=== PATIENT | female | born 1960 | race Caucasian/White ===

== ENCOUNTER 2017-11-06 13:35 | Inpatient (IN) ==
[2017-11-06] MEDS ORDERED: Acetaminophen 325 MG TABLET PO PRN (13:55)
[2017-11-06] MEDS ORDERED: metroNIDAZOLE 500 MG TABLET PO SCH (15:00)
[2017-11-06] MEDS ORDERED: Furosemide 40 MG TABLET PO SCH (17:00)
--- NOTE | 2017-11-06 17:18 | Internal Med History&Physical ---
Date of Encounter: 11/06/17 Time of Encounter: 16:50 Assessment and Plan (1) COPD (chronic obstructive pulmonary disease) Current visit: No Status: Acute Continue Symbicort, albuterol, Incruse ellipta, and prednisone taper Qualifiers: COPD type: COPD with acute exacerbation Qualified Code(s): J44.1 - Chronic obstructive pulmonary disease with (acute) exacerbation (2) Diastolic heart failure Current visit: Yes Status: Chronic Continue Lasix and Lopressor Qualifiers: Heart failure chronicity: chronic Qualified Code(s): I50.32 - Chronic diastolic (congestive) heart failure Internal Medicine - H&P: HPI Chief complaint: COPD Admitted From: Hospital to Hospital Transfer Plans for Post Hospital Care: Home History of present illness: Ms. Hinds is a 56 year old female who was admitted to [facility] swing bed 2017 after a October 28 hospitalization at [facility] for exacerbation of COPD. She required BiPAP for acute respiratory failure. She gradually improved with treatment and was discharged to swing bed for ongoing therapy needs prior to discharge home. She does not have good recall of her recent [facility] stay and has difficulty answering some questions regarding past medical history. Her respiratory history is significant for having smoked since age 14 up to 2 packs per day. She has a diagnosis of COPD from pulmonary function test done in 2014. She wears oxygen 24/7 at home. Past Med Surg Social Fam HX - Past Medical History Medical history: CHF, COPD Psychiatric history: no psych history - Past Surgical History Surgical History: hysterectomy - Social History Smoking Status: Current every day smoker Smokeless Tobacco Status: No Alcohol use: none Drug use: none Internal Medicine - H&P: Meds Albuterol Sulfate [Ventolin Hfa] 2 puff IH Q6H PRN 10/28/17 [History] Budesonide/Formoterol 160/4.5 [Symbicort 160/4.5] 2 puff IH BIDR 10/29/17 [ History] Clopidogrel [Plavix] 75 mg PO DAILY 10/29/17 [History] Umeclidinium [place] [Incruse Ellipta] 1 puff IH DAILY 10/29/17 [History] Acetaminophen [Tylenol] 650 mg PO Q6HR PRN tablet 11/06/17 [Rx] Furosemide [Lasix] 40 mg PO BID tablet 11/06/17 [Rx] Metoprolol [Lopressor] 12.5 mg PO BID tablet 11/06/17 [Rx] Polyethylene Glycol 3350 [MiraLAX] 17 gm PO DAILY PRN powd.pack 11/06/17 [Rx] Sennosides/Docusate Sodium [Senna Plus] 1 each PO BID tablet 11/06/17 [Rx] metroNIDAZOLE [Flagyl] 500 mg PO TID #15 tablet 11/06/17 [Rx] predniSONE [PredniSONE] 40 mg PO DAILY #5 tablet 11/06/17 [Rx] 3 Allergy/AdvReac Type Severity Reaction Status Date / Time aspirin AdvReac Vomiting Verified 06/24/15 19:28 All Systems PM: A 10-system review of systems was performed and is negative for pertinent findings except as documented above in the HPI. Review of systems: Gen.: Her weight has increased from 43.59 kg on 06/27/2015 to 47.287 kg today.. Cardiovascular: She denies [place] hypertension heart failure angina DVT or pulmonary embolus. Echocardiogram at [facility] 11/01/2017 showed LVEF of 60-65% with mild diastolic dysfunction but no significant valvular abnormality. The E/ A ratio was 0.8. RVSP estimate not obtained due to poor TR jet. Respiratory: As per history of present illness GI: She denies disorders of her liver gallbladder or exocrine pancreas : She denies hematuria dysuria or kidney stones Neurologic: She denies large distribution strokes or seizures. Endocrine: She denies diabetes thyroid disease or hyperlipidemia Hematology/oncology: She had uterine cancer with a curative hysterectomy at age 27. She also had BSO. Psychiatric: She denies anxiety depression or other mental health issues Musk skeletal: She denies arthritis gout or osteoporosis other bone joint or muscle disorders. - Constitutional Vitals: Temp Pulse Resp BP Pulse Ox 98.6 F 109 20 92/56 93 11/06/17 13:57 11/06/17 15:10 11/06/17 13:57 11/06/17 13:57 11/06/17 15:10 Exam: Gen.: She is a well-developed lean female resting comfortably in bed and appears in no acute distress HEENT: Head is atraumatic and normocephalic. Eyes: EOMI. There is no scleral icterus. Mouth: Mucosa is moist. Neck: Supple and nontender. There is no thyromegaly or adenopathy noted. Heart: Regular without murmurs gallops or ectopics Lungs: No wheezes or crackles are heard. Abdomen: Soft and nontender. No masses or guarding are noted. Exam is limited because she is in a seated position. Extremities: She has 1-2+ edema of the dorsum of the feet and lower legs bilaterally. Dorsalis pedis and posterior tibial pulses are nonpalpable. Neurologic: Mental status: She is talkative and a fair to good historian. She has difficulty recalling some details of her history. Cranial nerves: Smile is symmetric. Forehead wrinkles bilaterally. Tongue protrudes midline. EOMI. Motor: There is no pronator drift. Cerebellar: Finger to nose is intact bilaterally. Skin: Warm and dry
[2017-11-06] MEDS: Sennosides/Docusate Sodium TABLET PO SCH (20:55)
[2017-11-06] MEDS: Budesonide/Formoterol 160/4.5 MDI IH SCH (21:39)
[2017-11-07 06:31] LABS: Basophils % 0.1 %; Eosinophils # 0.1 K/mcL (0.0-0.6); Hematocrit 36.7 % (35.3-44.9); Hemoglobin 11.3 g/dL (11.5-15.4); Immature Granulocytes % 0.9 % (0-4); Lymphocytes % 11.6 %; Mean Corpuscular HGB Conc 30.8 g/dL (31.6-35.5); Mean Corpuscular Volume 100.8 fL (83.0-100.0); Mean Platelet Volume 10.1 fL (9.4-12.4); Monocytes # 1.2 K/mcL (0.0-1.3); Monocytes % 13.6 %; Neutrophils # 6.5 K/mcL (1.6-8.9); Platelet Count 151 K/mcL (140-400); Red Blood Count 3.64 M/mcL (3.82-4.97); Red Cell Distribution Width 14.1 % (11.5-14.5); Segmented Neutrophils % 72.8 %
[2017-11-07 07:15] LABS: BUN/Creatinine Ratio 48 (6-26); Blood Urea Nitrogen 15 mg/dL (6-20); Calcium 8.5 mg/dL (8.6-10.3); Chloride 85 mEq/L (98-107); Glucose 150 mg/dL (70-105); Osmolality,Calculated 296 (280-300); Potassium 3.8 mEq/L (3.5-5.1); Sodium 141 mEq/L (136-145); eGFR For African Americans > 60 (> 60); eGFR For Non-African Americans > 60 (> 60)
[2017-11-07 07:17] LABS: Carbon Dioxide > 45 mEq/L (23-29)
[2017-11-07] MEDS: Bumetanide 1 MG TABLET PO SCH (07:37)
[2017-11-07] MEDS: Sennosides/Docusate Sodium TABLET PO SCH ×2 (07:38→21:05)
[2017-11-07] MEDS: predniSONE 20 MG TABLET PO SCH (07:38)
[2017-11-07] MEDS ORDERED: predniSONE 20 MG TABLET PO SCH (09:00)
[2017-11-07] MEDS: INCRUSE ELLIPTA IH SCH (09:56)
[2017-11-07 10:20] LABS: Folate 6.7 ng/mL (3.0-16.0)
[2017-11-07] MEDS: Budesonide/Formoterol 160/4.5 MDI IH SCH ×2 (10:28→20:24)
--- NOTE | 2017-11-07 10:56 | Internal Med Progress Note ---
Date of Encounter: 11/07/17 Time of Encounter: 10:45 - Assessment and plan (1) COPD (chronic obstructive pulmonary disease) Current Visit: No Status: Acute Assessment and plan: Continue Symbicort, albuterol, prednisone, and Incruse Qualifiers: COPD type: COPD with acute exacerbation Qualified Code(s): J44.1 - Chronic obstructive pulmonary disease with (acute) exacerbation (2) Diastolic heart failure Current Visit: Yes Status: Chronic Assessment and plan: November 07. BN peptide improved to 152. Continue Bumex and Lopressor. Qualifiers: Heart failure chronicity: chronic Qualified Code(s): I50.32 - Chronic diastolic (congestive) heart failure (3) Macrocytic anemia Current Visit: Yes Status: Acute Assessment and plan: November 07. B12 280, folate 6.7, and TSH 0.946. Will observe - Subjective Interval history: November 07. She has no new complaints. She inquired about her anticipated length of stay. She used BiPAP during the night but states the mask did not fit well. - Constitutional Vitals: Temp Pulse Resp BP Pulse Ox 98.3 F 95 18 94/59 96 11/07/17 06:55 11/07/17 06:55 11/07/17 06:55 11/07/17 06:55 11/06/17 21:49 Exam: She is sitting in bed resting comfortably and appears in no acute distress. Edema is unchanged. Her affect is bright and cheerful. I reviewed her medications and lab results. Internal Medicine: Result - Labs CBC & Chem 7: 11/07/17 05:45 11/07/17 05:45 Labs: Short CBC 11/07/17 Range/Units 05:45 WBC 8.9 (4.3-11.1) K/mcL Hgb 11.3 L (11.5-15.4) g/dL Hct 36.7 (35.3-44.9) % Plt Count 151 (140-400) K/mcL Neutrophils # 6.5 (1.6-8.9) K/mcL BMP 11/07/17 05:45 Sodium 141 Potassium 3.8 Chloride 85 L Carbon Dioxide > 45 H* BUN 15 Creatinine 0.31 L Glucose 150 H Calcium 8.5 L Consult Discharge Plan - Plan Referrals: Tod Ruelas MD [Primary Care Provider] - 1 week
[2017-11-07] MEDS ORDERED: Ondansetron ODT 4 MG TAB.RAPDIS SL PRN (18:11)
[2017-11-08] MEDS: predniSONE 20 MG TABLET PO SCH (09:44)
[2017-11-08] MEDS: Sennosides/Docusate Sodium TABLET PO SCH ×2 (09:44→20:53)
[2017-11-08] MEDS: Bumetanide 1 MG TABLET PO SCH (09:50)
[2017-11-08] MEDS: INCRUSE ELLIPTA IH SCH (09:51)
[2017-11-08] MEDS: Budesonide/Formoterol 160/4.5 MDI IH SCH ×2 (10:26→22:15)
--- NOTE | 2017-11-08 18:12 | Internal Med Progress Note ---
Date of Encounter: 11/08/17 Time of Encounter: 10:00 - Assessment and plan (1) COPD (chronic obstructive pulmonary disease) Current Visit: No Status: Acute Assessment and plan: November 07. Continue Symbicort, albuterol, prednisone, and Incruse November 08. She was ordered CPAP/BiPAP during [facility] stay to be continued at discharge to swing bed. Nurse navigator is researching documentation to qualify her for home CPAP/BiPAP. She states she uses oxygen 16/11. Qualifiers: COPD type: COPD with acute exacerbation Qualified Code(s): J44.1 - Chronic obstructive pulmonary disease with (acute) exacerbation (2) Diastolic heart failure Current Visit: Yes Status: Chronic Assessment and plan: November 07. BN peptide improved to 152. Continue Bumex and Lopressor. Qualifiers: Heart failure chronicity: chronic Qualified Code(s): I50.32 - Chronic diastolic (congestive) heart failure (3) Macrocytic anemia Current Visit: Yes Status: Acute Assessment and plan: November 07. B12 280, folate 6.7, and TSH 0.946. Will observe - Subjective Interval history: November 07. She has no new complaints. She inquired about her anticipated length of stay. She used BiPAP during the night but states the mask did not fit well. November 08. She has no new complaints. She wishes to be discharged home. - Constitutional Vitals: Temp Pulse Resp BP Pulse Ox 98.9 F 94 16 85/54 94 11/08/17 07:00 11/08/17 07:00 11/08/17 10:26 11/08/17 07:00 11/08/17 10:26 Exam: She is resting comfortably in bed and appears in no acute distress. She does not appear dyspneic. She is appropriate in conversation. I reviewed her medications and lab results. Internal Medicine: Result - Labs CBC & Chem 7: 11/07/17 05:45 11/07/17 05:45 - VTE Documentation of Mechanical Device: Graduated compression elastic hosiery Consult Discharge Plan - Plan Referrals: Tod Ruelas MD [Primary Care Provider] - 1 week
[2017-11-09 07:30] VITALS: BP 98/59
[2017-11-09] MEDS: Budesonide/Formoterol 160/4.5 MDI IH SCH (09:59)
[2017-11-09] MEDS: Sennosides/Docusate Sodium TABLET PO SCH (10:24)
[2017-11-09] MEDS: predniSONE 20 MG TABLET PO SCH (10:25)
[2017-11-09] MEDS: INCRUSE ELLIPTA IH SCH (10:25)
[2017-11-09] MEDS: Bumetanide 1 MG TABLET PO SCH (10:25)
--- NOTE | 2017-11-09 11:38 | Discharge Summary ---
Date of Encounter: 11/09/17 Time of Encounter: 11:28 - Discharge Diagnosis (1) COPD (chronic obstructive pulmonary disease) Priority: Primary Status: Acute Qualifiers: COPD type: COPD with acute exacerbation Qualified Code(s): J44.1 - Chronic obstructive pulmonary disease with (acute) exacerbation (2) Diastolic heart failure Priority: Secondary Status: Chronic Qualifiers: Heart failure chronicity: chronic Qualified Code(s): I50.32 - Chronic diastolic (congestive) heart failure (3) Macrocytic anemia Priority: Secondary Status: Acute Hospital course: Ms. Hinds is a 56 year old female who was admitted to [facility] swing bed 2017 after a October 28 hospitalization at [facility] for exacerbation of COPD. She required BiPAP for acute respiratory failure. She gradually improved with treatment and was discharged to swing bed for ongoing therapy needs prior to discharge home. Initial orders were written by the discharging physicians at [facility]. I saw her on November 06 and performed the swing bed history and physical. She continued with her pulmonary medications as at discharge and had no new problems. She made gradual improvement in her walking ability. Follow-up lab work on November 07 showed BN peptide improved to 152. B12 and folate levels were unremarkable. On November 09 arrangements were complete for her to be discharged home. CPAP/ BiPAP was arranged per orders of pulmonology at [facility]. She will follow with her PCP Dr. Tod Ruelas within 1 week. She will continue oxygen 16/11. I encouraged her strongly to remain a nonsmoker. - Time Spent with Patient Total time spent providing and/or coordinating discharge services: - Discharge Medications Prescriptions: Bumetanide [Bumex] 1 mg PO DAILY #30 tablet predniSONE [PredniSONE] 10 mg PO DAILY #12 tablet Home Medications: Albuterol Sulfate [Ventolin Hfa] 2 puff IH Q6H PRN 10/28/17 [History] Budesonide/Formoterol 160/4.5 [Symbicort 160/4.5] 2 puff IH BIDR 10/29/17 [ History] Clopidogrel [Plavix] 75 mg PO DAILY 10/29/17 [History] Umeclidinium [place] [Incruse Ellipta] 1 puff IH DAILY 10/29/17 [History] Acetaminophen [Tylenol] 650 mg PO Q6HR PRN tablet 11/06/17 [Rx] Metoprolol [Lopressor] 12.5 mg PO BID tablet 11/06/17 [Rx] Polyethylene Glycol 3350 [MiraLAX] 17 gm PO DAILY PRN powd.pack 11/06/17 [Rx] Sennosides/Docusate Sodium [Senna Plus] 1 each PO BID tablet 11/06/17 [Rx] Bumetanide [Bumex] 1 mg PO DAILY #30 tablet 11/09/17 [Rx] predniSONE [PredniSONE] 10 mg PO DAILY #12 tablet 11/09/17 [Rx] Allergies/Adverse Reactions: 3 Allergy/AdvReac Type Severity Reaction Status Date / Time aspirin AdvReac Vomiting Verified 06/24/15 19:28 Date of admission: 11/06/17 13:38 Primary care physician: Tod Ruelas MD Consults: 11/06/17 13:49 Consult to Occupational Therapy [CONS] Routine Comment: eval, develop, implement POC Reason for Consult: eval, develop, implement POC Does patient have active BEDREST order?: No Is patient medically & hemodynamically stable?: Yes Consult to Physical Therapy [CONS] Routine Comment: eval, develop, implement POC Reason for Consult: eval, develop, implement POC Does patient have active BEDREST order?: No Is patient medically & hemodynamically stable?: Yes Consult to Hair Weaver [CONS] Routine Reason for SW Consult: may need HH upon discharge - Constitutional Vitals: Temp Pulse Resp BP Pulse Ox 98.9 F 87 16 98/59 92 11/09/17 06:00 11/09/17 06:00 11/09/17 10:00 11/09/17 06:00 11/09/17 10:00 - Patient Status Disposition: Home Health Service - Discharge Instructions Follow Up With: Tod Ruelas MD [Primary Care Provider] - 1 week - Diet and Activity Activity: resume usual activities as tolerated, wear oxygen at all times Diet: advance to your usual diet - VTE Documentation of Mechanical Device: Graduated compression elastic hosiery
--- NOTE | 2017-11-09 11:43 | Physician Discharge Referral ---
Home Health/Hosp Referral Info Transfer to: Home Health Attending Provider: Shon Provider in Charge Post Discharge: PCP (Tod Ruelas M.D.) - Diagnosis (1) COPD (chronic obstructive pulmonary disease) Priority: Primary Status: Acute (2) Diastolic heart failure Priority: Secondary Status: Chronic (3) Macrocytic anemia Priority: Secondary Status: Acute - Respiratory Orders Oxygen / L per min (2 L/m 24/7 by nasal cannula.), Other (Use CPAP/BiPAP as ordered per bracelet former.) Smoking Cessation: Smoking cessation has been advised. For more information, call the [place] Tobacco Quit Line at 2-545-VDQI-NOW. - Diet/Nutrition Diet/Nutrition Orders: Regular - Activity Activity Orders: Up ad chasidy - Services Needed Following services are medically necessary services: Nursing, Home Health Aide, Physical Therapy, Occupational Therapy - Transfer Medications Prescriptions: Bumetanide [Bumex] 1 mg PO DAILY #30 tablet predniSONE [PredniSONE] 10 mg PO DAILY #12 tablet Home Medications: Albuterol Sulfate [Ventolin Hfa] 2 puff IH Q6H PRN 10/28/17 [History] Budesonide/Formoterol 160/4.5 [Symbicort 160/4.5] 2 puff IH BIDR 10/29/17 [ History] Clopidogrel [Plavix] 75 mg PO DAILY 10/29/17 [History] Umeclidinium [place] [Incruse Ellipta] 1 puff IH DAILY 10/29/17 [History] Acetaminophen [Tylenol] 650 mg PO Q6HR PRN tablet 11/06/17 [Rx] Metoprolol [Lopressor] 12.5 mg PO BID tablet 11/06/17 [Rx] Polyethylene Glycol 3350 [MiraLAX] 17 gm PO DAILY PRN powd.pack 11/06/17 [Rx] Sennosides/Docusate Sodium [Senna Plus] 1 each PO BID tablet 11/06/17 [Rx] Bumetanide [Bumex] 1 mg PO DAILY #30 tablet 11/09/17 [Rx] predniSONE [PredniSONE] 10 mg PO DAILY #12 tablet 11/09/17 [Rx] Allergies/Adverse Reactions: 3 Allergy/AdvReac Type Severity Reaction Status Date / Time aspirin AdvReac Vomiting Verified 06/24/15 19:28 Certification: Further, I certify that my clinical findings support that this patient is homebound (i.e. absences from home require considerable and taxing effort and are for medical reasons or latter-day services or infrequently or short duration when for other reasons) because: Homebound Reason: Leaving home requires considerable and taxing effort due to condition (End-stage COPD with hypoxemia.) Attestation: My signature below is to certify that this patient is under my care and that I, or nurse practitioner, or a physician's assistant project manager working with me, has a face-to -face encounter with this patient.
== END 2017-11-09 14:56 | disposition home health service (06) | DRG 191 ==
LOC: INPPIK 13:38
PROVIDERS: ADMIT Internal Medicine; ATTEND Internal Medicine